=== PATIENT | male | born 1985 ===

== ENCOUNTER 2017-12-29 19:42 | Emergency (ER) | payer OTHER ==
[2017-12-29 20:12] VITALS: BP 130/72
[2017-12-29] MEDS ORDERED: Tetracaine 0.5% OPTH.SOL 4 ML* 1 DROP BTL LEFT EYE ONE (20:34)
--- NOTE | 2017-12-29 20:34 | UC ---
Eye Complaint HPI - HPI Summary HPI Summary: PATIENT PRESENTS WITH 2 DAYS OF LEFT EYE REDNESS, IRRITATION AND FOREIGN BODY SENSATION. 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 [place] AND WILL BE HEADING THROUGH [place] AND TOWARD THE [facility] TOMORROW. HE HAS DECREASED VISION IN HIS LEFT EYE AND SOME PHOTOPHOBIA. LEFT EYE IS TEARING. - History of Current Complaint Chief Complaint: UCEye Stated Complaint: LEFT EYE REDNESS Time Seen by Provider: 12/29/17 20:14 Hx Obtained From: Patient Onset/Duration: Gradual Onset, Lasting Days, Still Present Timing: Constant Severity Initially: Moderate Severity Currently: Moderate Pain Intensity: 3 Pain Scale Used: 0-10 Numeric Aggravating Factor(s): Nothing Alleviating Factor(s): Nothing Associated Signs And Symptoms: Positive: Photophobia, Drainage (Clear), Vision Impairment Left - Allergies/Home Medications Allergies/Adverse Reactions: Allergies Allergy/AdvReac Type Severity Reaction Status Date / Time No Known Allergies Allergy Verified 12/29/17 20:12 PMH/Surg Hx/FS Hx/Imm Hx Previously Healthy: Yes - Surgical History Surgical History: Yes Surgery Procedure, Year, and Place: DILATED VEINS IN SCROTUM - Family History Known Family History: Negative: Hypertension - Social History Alcohol Use: None Substance Use Type: None Smoking Status (MU): Never Smoked Tobacco Review of Systems Constitutional: Negative Skin: Negative Eyes: Blurred Vision, Drainage, Eye Redness, Photophobia Respiratory: Negative Cardiovascular: Negative Gastrointestinal: Negative All Other Systems Reviewed And Are Negative: Yes Physical Exam Triage Information Reviewed: Yes Appearance: Well-Appearing, Well-Nourished, Pain Distress - MOD Vital Signs: Initial Vital Signs Temp 98 F 12/29/17 20:03 Pulse 72 12/29/17 20:03 Resp 16 12/29/17 20:03 BP 130/72 12/29/17 20:03 Pulse Ox 97 12/29/17 20:03 Vital Signs Reviewed: Yes Eyes: Positive: Conjunctiva Inflamed - LEFT, Discharge - Clear drainage from left eye, Other: - PERRLA, EOMI. FOREIGN BODY LOCATED CENTRALLY LEFT CORNEA ENT: Positive: Hearing grossly normal Neck: Positive: Supple Respiratory: Positive: No respiratory distress, No accessory muscle use Cardiovascular: Positive: Pulses Normal Abdomen Description: Positive: Soft Musculoskeletal: Positive: No Edema Neurological: Positive: Alert Psychological: Positive: Age Appropriate Behavior Skin: Negative: rashes Eye Complaint Course/Dx - Course Course Of Treatment: ATTEMPTED TO REMOVE FB USING 18G NEEDLE AND COTTON SWAB. MAJORITY REMOVED BUT A SMALL PIECE IS RETAINED. RECOMMEND OPHTH F/U TOMORROW. POLYTRIM EYE DROPS TO PREVENT INFECTION AND KETOROLAC EYE DROPS NEEDED FOR DISCOMFORT. - Differential Dx/Diagnosis Provider Diagnoses: LEFT EYE FB - RETAINED Discharge - Sign-Out/Discharge Documenting (check all that apply): Discharge/Admit/Transfer - Discharge Plan Condition: Stable Disposition: HOME Prescriptions: Ketorolac 0.5% OPHTH (NF) 1 drop LEFT EYE QID PRN #1 btl PRN Reason: Pain Patient Education Materials: Corneal Abrasion (ED), Eye Foreign Body (ED) Referrals: No Primary Care Phys,NOPCP [Primary Care Provider] - Additional Instructions: MOST OF THE FOREIGN BODY WAS REMOVED FROM YOUR LEFT CORNEA HOWEVER THERE IS A SMALL PIECE THAT IS RETAINED. YOU NEED TO SEE AN DESKTOP PUBLISHING ASSOCIATE IN ORDER TO HAVE THIS REMOVED. USE THE POLYTRIM ANTIBIOTIC EYE DROPS PRESCRIBED EVERY 4 HOURS WHILE AWAKE AND THE ANTI-INFLAMMATORY EYEDROPS FOR DISCOMFORT NEEDED. CALL AN DESKTOP PUBLISHING ASSOCIATE IN YOUR AREA TOMORROW FOR AN APPOINTMENT TO BE SEEN. GO TO THE CLOSEST ED WITHOUT FAIL IF YOU DEVELOP WORSENING VISUAL DISTURBANCES, INCREASED PAIN, PURULENT DRAINAGE FROM YOUR EYE OR ANY OTHER CONCERNING SYMPTOMS. - Billing Disposition and Condition Condition: STABLE Disposition: HOME
[2017-12-29] MEDS ORDERED: Polymyx/Trimethoprim OPTH* 10 ML BTL LEFT EYE ONE (21:57)
[2017-12-29] MEDS ORDERED: Polymyx/Trimethoprim OPTH* 10 ML BTL LEFT EYE SCH (22:00)
[2017-12-29] MEDS ORDERED: Polymyx/Trimethoprim OPTH* 10 ML BTL ONE (22:04)
== END 2017-12-29 22:21 | disposition home or self-care (01) ==
LOC: UCEAST 19:42
DX: T15.02XA Foreign body in cornea, left eye, initial encounter (principal); X58.XXXA Exposure to other specified factors, initial encounter; Y93.89 Activity, other specified; Y92.410 Unspecified street and highway as the place of occurrence of the external cause; Y99.0 Civilian activity done for income or pay
CPT/HCPCS: 99203; A9270-GY; G0463

== ENCOUNTER 2018-01-26 23:14 | Emergency (ER) | payer OTHER ==
[2018-01-26 23:18] VITALS: BP 142/72
[2018-01-26] MEDS ORDERED: DOXYcycline CAP(*) 100 MG PO ONE (23:56)
--- NOTE | 2018-01-26 23:57 | ED ---
Bite Injury/Animal - HPI Summary HPI Summary: Complains of tick bite to right lower back today. Patient's friend removed tick , and stated some part was left in patient's body. Patient denies fever, rash, N/V, abdominal pain, joint pain, HIDALGO. Medical history is none. - History of Current Complaint Chief Complaint: EDAnimalBite Stated Complaint: TICK BITE Time Seen by Provider: 01/26/18 23:29 Hx Obtained From: Patient Type of Bite: Wild Animal Severity Currently: None Pain Intensity: 0 Pain Scale Used: 0-10 Numeric - Allergies/Home Medications Allergies/Adverse Reactions: Allergies Allergy/AdvReac Type Severity Reaction Status Date / Time No Known Allergies Allergy Verified 01/26/18 23:18 PMH/Surg Hx/FS Hx/Imm Hx Previously Healthy: Yes Endocrine/Hematology History: Denies: Hx Anticoagulant Therapy, Hx Blood Disorders, Hx Blood Transfusions, Hx Bone Marrow Disease, Hx Diabetes, Hx Systemic Lupus Erythematosus, Hx Sickle Cell Disease, Hx Thyroid Disease, Hx Anemia, Hx Unexplained Bleeding, Hx Coagulopothy, Autoimmune Disease, Other Endocrine/Hematological Disorders - Surgical History Surgery Procedure, Year, and Place: DILATED VEINS IN SCROTUM Infectious Disease History: No Infectious Disease History: Denies: Traveled Outside the [place] in Last 30 Days - Family History Known Family History: Negative: Hypertension - Social History Alcohol Use: None Substance Use Type: Reports: None Smoking Status (MU): Never Smoked Tobacco Review of Systems Constitutional: Negative Eyes: Negative ENT: Negative Cardiovascular: Negative Respiratory: Negative Gastrointestinal: Negative Genitourinary: Negative Musculoskeletal: Negative Positive: Other Neurological: Negative Psychological: Normal All Other Systems Reviewed And Are Negative: Yes Physical Exam - Summary Physical Exam Summary: Small raised area of erythema around tick bite site. Small portion of tick body remaining in bite site. FB removed using a scalpel and tweezers. Cleaned with Betadine. No bull's-eye rash, purulent drainage. Triage Information Reviewed: Yes Vital Signs On Initial Exam: Initial Vitals Temp Pulse Resp BP Pulse Ox 98.4 F 60 18 142/72 98 01/26/18 23:16 01/26/18 23:16 01/26/18 23:16 01/26/18 23:16 01/26/18 23:16 Vital Signs Reviewed: Yes Appearance: Positive: Well-Appearing Skin: Positive: Warm Head/Face: Positive: Normal Head/Face Inspection Eyes: Positive: Normal Neck: Positive: Supple Respiratory/Lung Sounds: Positive: Clear to Auscultation Cardiovascular: Positive: Normal Abdomen Description: Positive: Nontender Musculoskeletal: Positive: Normal Neurological: Positive: Normal Psychiatric: Positive: Normal AVPU Assessment: Alert - [place] Coma Scale Best Eye Response: 4 - Spontaneous Best Motor Response: 6 - Obeys Commands Best Verbal Response: 5 - Oriented Coma Scale Total: 15 Diagnostics - Vital Signs Vital Signs Temp Pulse Resp BP Pulse Ox 01/26/18 23:16 98.4 F 60 18 142/72 98 - Laboratory Lab Statement: Any lab studies that have been ordered have been reviewed, and results considered in the medical decision making process. Bite Injury Course/Dx - Course Course Of Treatment: Complains of tick bite to right lower back today. Patient' s friend removed tick by squeezing body and pulling, and stated some part was left in patient's body. Patient denies fever, rash, N/V, abdominal pain, joint pain, HIDALGO. Medical history is none.Small raised area of erythema around tick bite site. Small portion of tick body remaining in bite site. FB removed using a scalpel and tweezers. Cleaned with Betadine. No bull's-eye rash, purulent drainage. Prophylactic Doxy 200 mg by mouth here in the ED. Follow up with primary care - Diagnoses Provider Diagnosis: Tick bite Discharge - Sign-Out/Discharge Documenting (check all that apply): Discharge/Admit/Transfer - Discharge Plan Condition: Stable Disposition: HOME Patient Education Materials: Lyme Disease (ED), Tick Bite (ED) Referrals: No Primary Care Phys,NOPCP [Primary Care Provider] - [facility] [Outside] Additional Instructions: Follow-up with primary care. Return to the ED for any new or worsening symptoms - Billing Disposition and Condition Condition: STABLE Disposition: Home
== END 2018-01-27 00:22 | disposition home or self-care (01) ==
LOC: ED 23:14
DX: S30.860A Insect bite (nonvenomous) of lower back and pelvis, initial encounter (principal); M54.5 Low back pain; W57.XXXA Bitten or stung by nonvenomous insect and other nonvenomous arthropods, initial encounter; Y92.9 Unspecified place or not applicable
CPT/HCPCS: 99282; A9270-GY